=== PATIENT | female | born 1955 | race Caucasian/White ===

== ENCOUNTER 2016-10-14 10:54 | Emergency (ER) | payer OTHER | END 2016-10-14 11:37 | disposition home or self-care (01) | LOC: D.ER 10:54 | DX: T17.298A Other foreign object in pharynx causing other injury, initial encounter (principal); X58.XXXA Exposure to other specified factors, initial encounter; Y93.89 Activity, other specified; Y92.019 Unspecified place in single-family (private) house as the place of occurrence of the external cause; I10 Essential (primary) hypertension; E78.5 Hyperlipidemia, unspecified ==

== ENCOUNTER 2017-01-25 08:10 | Outpatient (CLI) | payer OTHER | END 2017-01-25 10:41 | LOC: D.MAMMO 08:10 | DX: Z12.31 Encounter for screening mammogram for malignant neoplasm of breast (principal) ==

== ENCOUNTER 2017-10-11 20:49 | Emergency (ER) | payer OTHER ==
[2017-10-11 22:21] LABS: BASOPHILS 0.3 % (0-2); HEMATOCRIT 42.6 % (36.0-48.0); HEMOGLOBIN 14.9 g/dL (12-16); IMMATURE GRANULOCYTES 0.4 % (0-5); LYMPHOCYTES 33.4 % (15-50); MCH 29.9 pg (26.0-34.0); MCV 85.5 fL (80.0-100.0); MONOCYTES 7.2 % (2-11); NEUTROPHILS 56.7 % (40-80); PLATELET COUNT 295 10x3/uL (130-400); RBC 4.98 10x6/uL (4.00-5.40); RDW 12.1 % (11.5-14.5); WBC 7.9 10x3/uL (4.8-10.8)
[2017-10-11 22:29] LABS: APPEARANCE CLEAR (CLEAR); COLOR YELLOW (YELLOW); NITRITE NEGATIVE (NEGATIVE); SPECIFIC GRAVITY 1.015 (1.005-1.020)
[2017-10-11 22:30] LABS: BACTERIA FEW /hpf (NONE SEEN); BILIRUBIN NEGATIVE (NEGATIVE); EPITHELIAL CELLS 0-5 /hpf (0-5); GLUCOSE 1000 mg/dL (NEGATIVE); KETONE MODERATE mg/dL (NEGATIVE); PROTEIN NEGATIVE (NEGATIVE); RED CELLS - URINE OCC /hpf (0-5); UROBILINOGEN NORMAL (NORMAL)
[2017-10-11 22:38] LABS: KETONE - SERUM NEGATIVE (NEGATIVE)
[2017-10-11 22:46] LABS: ALBUMIN 3.9 g/dL (3.4-5.0); ALKALINE PHOSPHATASE 163 U/L (46-116); ALT (SGPT) 54 U/L (10-68); CALCIUM 9.4 mg/dL (8.5-10.1); CARBON DIOXIDE 24.8 mmol/L (21.0-32.0); CHLORIDE - SERUM 97 mmol/L (98-107); POTASSIUM - SERUM 3.8 mmol/L (3.5-5.1); PROTEIN - SERUM 7.4 g/dL (6.4-8.2); SODIUM 134 mmol/L (136-145); THYROID STIMULATING HORMONE 2.86 uIU/mL (0.36-3.74); UREA NITROGEN 23 mg/dL (7-18); eGFR NON AFRICAN AMERICAN 59 mL/min (90-120)
[2017-10-11 22:54] LABS: CALC OSMOLALITY 288 mosm/kg (275-300)
[2017-10-11 22:55] LABS: GLUCOSE 411 mg/dL (74-106)
== END 2017-10-12 | disposition home or self-care (01) ==
LOC: D.ER 20:49
PROVIDERS: Physician Assistant Medical
DX: R73.9 Hyperglycemia, unspecified (principal); N39.0 Urinary tract infection, site not specified; E86.0 Dehydration; I10 Essential (primary) hypertension

== ENCOUNTER 2020-05-19 06:31 | Inpatient (IN) | payer OTHER, MEDICARE ==
[~2020-05-19] VITALS: Ht 160 cm; Wt 70.0 kg
[2020-05-19] MEDS ORDERED: METFORMIN HCL500 M1 PO (06:36)
[2020-05-19 06:57] LABS: BASOPHILS 0.5 % (0-2); EOSINOPHILS 2.8 % (0-7); HEMATOCRIT 44.4 % (36.0-48.0); HEMOGLOBIN 14.9 g/dL (12-16); IMMATURE GRANULOCYTES 0.7 % (0-5); LYMPHOCYTES 42.2 % (15-50); MCH 29.8 pg (26.0-34.0); MCHC 33.6 g/dL (31.0-37.0); MCV 88.8 fL (80.0-100.0); MEAN PLATELET VOLUME 9.2 fL (7.4-10.4); MONOCYTES 7.5 % (2-11); NEUTROPHILS 46.3 % (40-80); RDW 12.8 % (11.5-14.5); WBC 9.7 10x3/uL (4.8-10.8)
[2020-05-19 07:06] LABS: CALC OSMOLALITY 276 mosm/kg (275-300); CALCIUM 9.2 mg/dL (8.5-10.1); CARBON DIOXIDE 26.8 mmol/L (21.0-32.0); CHLORIDE - SERUM 100 mmol/L (98-107); CREATININE - SERUM 0.8 mg/dL (0.6-1.3); POTASSIUM - SERUM 3.1 mmol/L (3.5-5.1); SODIUM 137 mmol/L (136-145); UREA NITROGEN 20 mg/dL (7-18); eGFR NON AFRICAN AMERICAN 76 mL/min (90-120)
[2020-05-19 07:07] LABS: GLUCOSE 98 mg/dL (74-106); PLATELET COUNT 377 10x3/uL (130-400)
--- NOTE | 2020-05-19 07:15 | NUR ---
REPORT TO GEOFFREY. DR GARCIA IN TO SEE.
[2020-05-19 07:25] LABS: ALBUMIN 3.8 g/dL (3.4-5.0); ALKALINE PHOSPHATASE 88 U/L (30-120); ALT (SGPT) 78 U/L (10-68); BILIRUBIN - TOTAL 0.64 mg/dL (0.2-1.3); PROTEIN - SERUM 7.7 g/dL (6.4-8.2)
[2020-05-19 07:42] LABS: INR 0.78 (0.85-1.17); PROTIME 10.9 SECONDS (11.6-15.0)
--- NOTE | 2020-05-19 09:08 | MORECARE ---
CASE MANAGEMENT DISCHARGE SUMMARY PATIENT: WILLIAM SERRANO UNIT: [id number] ADM DATE: 05/19/20 AGE: 64 : 53 SEX: F ROOM/BED: D.1204 AUTHOR: YUMIKO TSE PHYSICIAN: REFERRING PHYSICIAN: JARETH BRIZUELA MD DATE OF SERVICE: 05/19/20 Discharge Plan Patient Name: WILLIAM SERRANO Facility: [facility]:[place] : 1955 Planned Disposition: Anticipated Discharge Date: Discharge Date: Expected LOS: Initial Reviewer: [id number] Initial Review Date: 05/19/2020 Generated: 05/19/20 10:08 am Patient Name: WILLIAM SERRANO Page 31755 at 0908 All edits/amendments must be made on the electronic document DICTATION DATE: 05/19/20 09 BUTTON SEWER HAND: MILIND 05/19/20 09 RPT#: [id number] DC DATE: STATUS: ADM IN [facility] [address] [place] [address] END OF REPORT
[2020-05-19 12:18] VITALS: BP 154/75
[2020-05-19 17:54] VITALS: BP 152/82
[2020-05-19 18:10] VITALS: BP 141/73
[2020-05-19 18:21] VITALS: BP 152/82; BMI 27.3
[2020-05-19] MEDS ORDERED: HYDROCHLOROTH12.5 M1 PO (18:22)
[2020-05-19] MEDS ORDERED: ZOCOR40 MG PO (18:22)
[2020-05-19 19:29] VITALS: BP 139/75
[2020-05-19 19:39] VITALS: BP 139/75
--- NOTE | 2020-05-19 20:00 | NUR ---
RESTING IN BED EYES CLOSED AROUSES EASILY, DENIES PAIN OR NEEDS AT THIS TIME, SEE SHIFT ASSESSMENT, CALL LIGHT IN REACH, CAST AND NEHEMIAS WRAP INTACT TO LEFT FOOT AND LOWER LEG, TOES PINK DENIES FEELING TO TOES
[2020-05-20] VITALS: BP 130/70
[2020-05-20 04:00] VITALS: BP 125/64
[2020-05-20 06:48] LABS: BASOPHILS 0.2 % (0-2); EOSINOPHILS 0.2 % (0-7); HEMATOCRIT 37.3 % (36.0-48.0); HEMOGLOBIN 12.2 g/dL (12-16); IMMATURE GRANULOCYTES 0.2 % (0-5); LYMPHOCYTES 15.6 % (15-50); MCH 29.1 pg (26.0-34.0); MCHC 32.7 g/dL (31.0-37.0); MEAN PLATELET VOLUME 9.1 fL (7.4-10.4); MONOCYTES 13.3 % (2-11); NEUTROPHILS 70.5 % (40-80); RBC 4.19 10x6/uL (4.00-5.40); WBC 9.9 10x3/uL (4.8-10.8)
[2020-05-20 06:56] LABS: PLATELET COUNT 296 10x3/uL (130-400)
[2020-05-20 07:05] LABS: ALKALINE PHOSPHATASE 67 U/L (30-120); BILIRUBIN - TOTAL 0.79 mg/dL (0.2-1.3); CALCIUM 8.7 mg/dL (8.5-10.1); CARBON DIOXIDE 29.3 mmol/L (21.0-32.0); CHLORIDE - SERUM 105 mmol/L (98-107); CREATININE - SERUM 0.8 mg/dL (0.6-1.3); GLUCOSE 94 mg/dL (74-106); POTASSIUM - SERUM 3.4 mmol/L (3.5-5.1); PROTEIN - SERUM 6.4 g/dL (6.4-8.2); SODIUM 139 mmol/L (136-145); eGFR NON AFRICAN AMERICAN 76 mL/min (90-120)
[2020-05-20 07:07] LABS: ALT (SGPT) 53 U/L (10-68); CALC OSMOLALITY 277 mosm/kg (275-300); UREA NITROGEN 12 mg/dL (7-18)
--- NOTE | 2020-05-20 07:30 | NUR ---
AWAKE AND ALERT. ORIENTED X3. LUNGS ARE CLEAR BUT DIMINISHED,OCCASSIONALLY PRODUCTIVE COUGH NOTED. SKIN IS INTACT WITHOUT REDNESS EXCEPT INCISION TO LEFT FOOT WHICH HAS A DRY INTACT DRESSING IN PLACE. IV TO LEFT AC IS PATENT WITHOUT REDNESS AT INSERTION SITE. REQUESTED AND GIVEN 10MG OXY PO FOR C/O LEFT ANKLE PAIN LEVEL 7. WILL MONITOR. SISTER AT BEDSIDE. UP TO BR. VOIDED WITHOUT DIFFICULTY.
--- NOTE | 2020-05-20 08:17 | OP ---
PATIENT NAME: WILLIAM SERRANO MEDICAL RECORD: [id number] :53 LOCATION:D. D.1207 ADMISSION DATE:05/19/20 SURGEON: JOSE HALE DO DATE OF OPERATION: 05/19/2020 PROCEDURE PERFORMED: Left ankle open reduction internal fixation. PREOPERATIVE DIAGNOSIS: Displaced subluxed left bimalleolar ankle fracture. POSTOPERATIVE DIAGNOSIS: Displaced subluxed left bimalleolar ankle fracture. INDICATIONS: Ms. Serrano is a 64-year-old female who fell today after walking her dogs and sustained a fracture to her left ankle and a severely displaced and subluxed laterally. She was brought to the ER and x-rays were taken and this seemed to be just subluxed and had a very comminuted fibula fracture in the shaft proximal to the ankle joint and the talus was subluxed out laterally. She also had a shantel of bone off the medial malleolus likely avulsion fracture from the deltoid ligament and she was put in a splint. I informed her that she needed to have her ankle fixed that would not be able to be treated nonop and informed her of the risks including infection, bleeding, damage to nerves or vessels in the area, specifically the superficial peroneal nerve due to the fact we had to make a larger incision to get the plate where it needed to be from the fracture, blood clots, and even and she signed the consent. SURGEON: Jose Hale DO DESCRIPTION OF THE PROCEDURE: The patient was taken to the operative suite after given a block by anesthesia in the preoperative area and taken from the supine position, given general anesthetic and LMA was placed. She was given a gram of Ancef. The left lower extremity was then prepped and draped in sterile fashion. A timeout was performed. Everyone was agreeance with correct side, site, patient, and the procedure. I then exsanguinated the left lower extremity with an Esmarch. Tourniquet was inflated to 350 mmHg, it was up for 58 minutes. I then made an incision over the lateral aspect of the ankle in order to bypass the fracture site. I made a reduction with the 2 larger pieces. She did have a piece of the more posterior that was not able to be fixated but then spanned the fracture with an 8-hole locking plate. I then pinned into place and once it was in adequate position, I locked it distally first and then put 3 screws into the shaft. The last of which was a locking screw. I then reduced the ankle joint as it subluxed laterally some and had medial clear space with a ratkh-gn-hroje clamp and with the ankle dorsiflexed and then put a ZipTight across and held it very well. I then addressed the medial mal and made a curvilinear incision over the medial malleolus, made careful dissection down to the avulsion fracture, put a 2.9 JuggerLoc anchor into the medial malleolus in a xjtedt-ub-wybym type fashion with 4 different sutures, sutured the fracture piece up to the fracture site and tied it into place, it held very well. The ankle was very stable upon examination. After that, the tourniquet was then let down. The sites were irrigated. Jason Fonseca, certified nurse midwife, closed the lateral side that he did this while I was doing the medial side with 2-0 Vicryl in inverted interrupted fashion. ZipLine was placed on the lateral side. The medial side was then closed with 2-0 Vicryl in inverted interrupted fashion. The ZipLine was placed on it. She was then dressed with Adaptic, 4 x 4s, ABD on the heel and over the incisions. A cast padding and a 4 x 30 splint was placed posteriorly and secured in place with 6-inch Gianni wrap. She was awakened and taken to recovery in stable condition. Tourniquet was let down at 58 minutes. OPERATIVE REPORT [id number] WILLIAM SERRANO BLOOD LOSS: 100 mL. COMPLICATIONS: None. TRANSINT:[id number] Voice Confirmation ID: [id number] DOCUMENT ID: [id number] JOSE HALE DO at 0817 CC: [id number] DICTATION DATE: 05/19/20 1641 CREDIT ASSOCIATE: 05/20/20 0216 ADM IN [place] [id number] [place] [id number]
[2020-05-20 09:00] VITALS: BP 139/56
--- NOTE | 2020-05-20 09:00 | NUR ---
ATE ALL OF BREAKFAST SHE WANTED. TOOK AM MEDS WITHOUT DIFFICULTY. DENIES NEEDS.
[2020-05-20 09:59] VITALS: Ht 160 cm; Wt 70.0 kg
--- NOTE | 2020-05-20 11:21 | NUR ---
REQUESTED AND GIVEN 10MG OXY PO FOR C/O LEFT ANKEL LEVEL 8. WILL MONITOR.
--- NOTE | 2020-05-20 14:30 | NUR ---
CRYING WITH PAIN TO LEFT ANKLE. ICE AND TYLENOL DIDN'T HELP. REFUSED OFFER OF DILAUDID IV. WILL MONITOR.
--- NOTE | 2020-05-20 15:00 | NUR ---
REQUESTED AND GIVEN 10MG OXY WITH 50MG VISTARIL PO FOR C/O LEFT ANKLE PAIN LEVEL 9. WILL MONITOR.
--- NOTE | 2020-05-20 16:12 | NUR ---
RESTING QUIETLY WITH EYES CLOSED. REPORTS PAIN IMPROVED BUT STILL THERE. WILL CONTINUE TO MONITOR.
--- NOTE | 2020-05-20 18:29 | NUR ---
ATE MOST OF SUPPER. REPORTS PAIN GREATLY IMPROVED. UP TO BSC WITH ONE PERSON ASSIST. VOIDED WITHOUT DIFFICULTY. CLEAR YELLOW SPECIMEN SENT TO LAB PER ORDERS. NO CHANGES AT THIS TIME.
[2020-05-20 18:36] LABS: BILIRUBIN NEGATIVE (NEGATIVE); KETONE NEGATIVE (NEGATIVE); NITRITE NEGATIVE (NEGATIVE); UROBILINOGEN NORMAL mg/dL (< 2)
[2020-05-20 20:00] VITALS: BP 131/61
--- NOTE | 2020-05-20 20:00 | NUR ---
ALERT RESTING IN BED REPORTS GOOD PAIN RELIEF WITH PAIN MEDS, SEE SHIFT ACCESSMENT,CALLLIGHT IN REACH
[2020-05-21 05:00] VITALS: BP 132/72
--- NOTE | 2020-05-21 06:00 | NUR ---
PT HAS INSENTIVE SPIROMETER AND ENCOURACED TO USE 10 TIMES/HR WHILE AWAKE, STATES HAS BEEN USING
--- NOTE | 2020-05-21 07:30 | NUR ---
AWAKE AND ALERT. ORIENTED X3. NO C/O AT THIS TIME. STATED LEFT ANKLE IS VERY SORE AND PLEASE DON'T TOUCH IT. NO INCREASED SWELLING NOTED. MOVES DIGITS FREELY. WILL MONITOR.
[2020-05-21 07:41] LABS: BASOPHILS 0.1 % (0-2); EOSINOPHILS 1.1 % (0-7); HEMATOCRIT 34.7 % (36.0-48.0); HEMOGLOBIN 11.4 g/dL (12-16); IMMATURE GRANULOCYTES 0.2 % (0-5); LYMPHOCYTES 21.3 % (15-50); MCH 29.4 pg (26.0-34.0); MCHC 32.9 g/dL (31.0-37.0); MCV 89.4 fL (80.0-100.0); MONOCYTES 13.6 % (2-11); NEUTROPHILS 63.7 % (40-80); PLATELET COUNT 275 10x3/uL (130-400); RBC 3.88 10x6/uL (4.00-5.40); RDW 13.1 % (11.5-14.5); WBC 8.5 10x3/uL (4.8-10.8)
[2020-05-21 08:04] VITALS: BP 143/58
[2020-05-21 08:06] LABS: ALBUMIN 2.9 g/dL (3.4-5.0); ALKALINE PHOSPHATASE 64 U/L (30-120); BILIRUBIN - TOTAL 1.03 mg/dL (0.2-1.3); CALC OSMOLALITY 277 mosm/kg (275-300); CALCIUM 8.4 mg/dL (8.5-10.1); CARBON DIOXIDE 27.5 mmol/L (21.0-32.0); CHLORIDE - SERUM 105 mmol/L (98-107); CREATININE - SERUM 0.7 mg/dL (0.6-1.3); GLUCOSE 92 mg/dL (74-106); PROTEIN - SERUM 5.9 g/dL (6.4-8.2); SODIUM 139 mmol/L (136-145); UREA NITROGEN 13 mg/dL (7-18); eGFR NON AFRICAN AMERICAN 89 mL/min (90-120)
[2020-05-21 08:07] LABS: ALT (SGPT) 39 U/L (10-68)
--- NOTE | 2020-05-21 09:30 | NUR ---
AMBULATED 30 FEET IN HALLWAY WITH PT USING CRUTCHES. DID WELL. DENIES INCREASED PAIN WITH ACTIVITY. ATE ALL OF BREAKFAST AND TOOK AM MEDS WITHOUT DIFFICULTY.
--- NOTE | 2020-05-21 10:15 | NUR ---
REQUESTED AND GIVEN 10MG OXY WITH 50MG VISTARIL PO FOR C/O LEFT ANKLE PAIN LEVEL 8. UP TO BSC WITH SBA. VOIDED CLEAR YELLOW URINE WITHOUT DIFFICULTY. SKIN CARE PER SELF.
--- NOTE | 2020-05-21 12:26 | NUR ---
REFUSED ACUCHECK AT THIS TIME. CRYING WITH PAIN. ENCOURAGED TO TAKE 1MG DILAUDID SLOW IVP FOR PAIN LEVEL 9, SHE AGREED TO SAME. WILL MONITOR.
--- NOTE | 2020-05-21 13:00 | NUR ---
ATE MOST OF LUNCH. REPORTS PAIN IMPROVED AT THIS TIME. DENIES NEEDS.
[2020-05-21 16:04] VITALS: BP 121/76
--- NOTE | 2020-05-21 17:00 | NUR ---
REFUSED ACUCHECK AT THIS TIME. I ONLY CHECK IT ONCE A DAY AT HOME. ATE MOST OF SUPPER PER SELF. DENIES NEEDS. NO CHANGES NOTED.
[2020-05-21 18:17] VITALS: BP 135/75
[2020-05-21 20:00] VITALS: BP 142/69
--- NOTE | 2020-05-21 21:00 | NUR ---
REFUSED ACCUCHECK, OXYCODONE GIVEN ORDERED, CALL LIGHT IN REACH
--- NOTE | 2020-05-21 23:18 | NUR ---
ALERT RESTING IN BED, REPORTS SOME PAIN TO ANKLE, SEE SHIFT ASSESSMENT, CALL LIGHT IN REACH
[2020-05-22 05:30] VITALS: BP 151/64
[2020-05-22 06:46] LABS: BASOPHILS 0.2 % (0-2); HEMATOCRIT 36.1 % (36.0-48.0); HEMOGLOBIN 11.9 g/dL (12-16); IMMATURE GRANULOCYTES 0.2 % (0-5); LYMPHOCYTES 21.5 % (15-50); MCH 29.5 pg (26.0-34.0); MCV 89.6 fL (80.0-100.0); MEAN PLATELET VOLUME 8.9 fL (7.4-10.4); MONOCYTES 11.2 % (2-11); NEUTROPHILS 63.9 % (40-80); PLATELET COUNT 286 10x3/uL (130-400); RBC 4.03 10x6/uL (4.00-5.40); RDW 12.9 % (11.5-14.5); WBC 8.2 10x3/uL (4.8-10.8)
[2020-05-22 07:22] LABS: ALBUMIN 2.8 g/dL (3.4-5.0); ALKALINE PHOSPHATASE 68 U/L (30-120); ALT (SGPT) 41 U/L (10-68); BILIRUBIN - TOTAL 1.02 mg/dL (0.2-1.3); CALC OSMOLALITY 281 mosm/kg (275-300); CALCIUM 8.9 mg/dL (8.5-10.1); CARBON DIOXIDE 30.2 mmol/L (21.0-32.0); CHLORIDE - SERUM 105 mmol/L (98-107); CREATININE - SERUM 0.7 mg/dL (0.6-1.3); GLUCOSE 98 mg/dL (74-106); POTASSIUM - SERUM 3.9 mmol/L (3.5-5.1); PROTEIN - SERUM 6.5 g/dL (6.4-8.2); SODIUM 141 mmol/L (136-145); UREA NITROGEN 16 mg/dL (7-18); eGFR NON AFRICAN AMERICAN 89 mL/min (90-120)
[2020-05-22 07:37] VITALS: BP 155/87
--- NOTE | 2020-05-22 08:39 | NUR ---
AMBULATED TO [facility] WITH WALKER. HOPPING WELL. VOIDED BUT NO STOOL. AMBULATED TO CHAIR AT BEDSIDE. FEET ELEVATED. CALL LIGHT IN REACH. HARD SPLINT AND NEHEMIAS WRAP NOTED TO LEFT LOWER LEG-TOES PINK AND WARM. ABLE TO MOVE TOES. WILL CONTINUE TO MONITOR
[2020-05-22] MEDS ORDERED: ELIQUIS2.5 MG PO (09:25)
[2020-05-22] MEDS ORDERED: oxyCODONE IR PO (09:25)
[2020-05-22] MEDS ORDERED: VISTARIL50 MG PO (09:26)
[2020-05-22 11:19] VITALS: BP 157/79
--- NOTE | 2020-05-22 12:07 | MORECARE ---
CASE MANAGEMENT DISCHARGE SUMMARY PATIENT: WILLIAM SERRANO UNIT: [id number] ADM DATE: 05/19/20 AGE: 64 : 53 SEX: F ROOM/BED: D.1207 AUTHOR: YUMIKO TSE PHYSICIAN: REFERRING PHYSICIAN: JARETH BRIZUELA MD DATE OF SERVICE: 05/22/20 Discharge Plan Patient Name: WILLIAM SERRANO Facility: [facility]:[place] : 1955 Planned Disposition: Home Anticipated Discharge Date: 05/22/20 Discharge Date: Expected LOS: 3 Initial Reviewer: [email or web address] Initial Review Date: 05/19/2020 Generated: 05/22/20 1:07 pm Last DP export: 05/19/20 8:08 a Patient Name: WILLIAM SERRANO Page [phone] at 1207 All edits/amendments must be made on the electronic document DICTATION DATE: 05/22/20 1207 MACHINE I TRIMMER: DM 05/22/20 1207 RPT#: [id number] DC DATE: STATUS: ADM IN [facility] [address] [place] [address] END OF REPORT
--- NOTE | 2020-05-22 12:17 | MORECARE ---
CASE MANAGEMENT DISCHARGE SUMMARY PATIENT: WILLIAM SERRANO UNIT: [id number] ADM DATE: 05/19/20 AGE: 64 : 53 SEX: F ROOM/BED: D.1207 AUTHOR: YUMIKO TSE PHYSICIAN: REFERRING PHYSICIAN: JARETH BRIZUELA MD DATE OF SERVICE: 05/22/20 Discharge Plan Patient Name: WILLIAM SERRANO Facility: [facility]:[place] : 1955 Planned Disposition: Home Anticipated Discharge Date: 05/22/20 Discharge Date: Expected LOS: 3 Initial Reviewer: [email or web address] Initial Review Date: 05/19/2020 Generated: 05/22/20 1:16 pm DCPIA - Discharge Planning Initial Assessment Updated by [email or web address]: Mona Mendoza on 05/22/20 12:11 pm * Is the patient Alert and Oriented? Yes * How many steps to enter\exit or inside your home? 10/05 * PCP Dr. Gonzalez * Pharmacy [facility] [place] * Preadmission Environment Home Alone * ADLs Partial Dependent * Partial ADLs (Assistance needed) Ambulation Bathing Dressing Transfers * Equipment Bedside Commode Walker Wheelchair * Other Equipment Rolling Walker, Wheel Chair, Bedside Commode * List name and contact numbers for known caregivers / representatives who currently or will assist patient after discharge: Steven Hawkins ([phone]) [address] [place] [id number] * Verbal permission to speak to the caregivers and representatives has been obtained from the patient. Yes * Community resources currently utilized None * Please name any agencies selected above. n/a * Additional services required to return to the preadmission environment? Yes * Can the patient safely return to the preadmission environment? No * Has this patient been hospitalized within the prior 30 days at any hospital? No Last DP export: 05/22/20 11:07 a Patient Name: WILLIAM SERRANO Page 33719 at 1217 All edits/amendments must be made on the electronic document DICTATION DATE: 05/22/20 1216 LEAD HOUSEKEEPER: MILIND 05/22/20 1216 RPT#: [id number] DC DATE: STATUS: ADM IN [facility] [address] [place] [address] END OF REPORT
--- NOTE | 2020-05-22 12:27 | MORECARE ---
CASE MANAGEMENT DISCHARGE SUMMARY PATIENT: WILLIAM SERRANO UNIT: [id number] ADM DATE: 05/19/20 AGE: 64 : 53 SEX: F ROOM/BED: D.1207 AUTHOR: DEDRICK,DOC PHYSICIAN: REFERRING PHYSICIAN: JARETH BRIZUELA MD DATE OF SERVICE: 05/22/20 Discharge Plan Patient Name: WILLIAM SERRANO Facility: [facility]:[place] : 1955 Planned Disposition: Home Anticipated Discharge Date: 05/22/20 Discharge Date: Expected LOS: 3 Initial Reviewer: [email or web address] Initial Review Date: 05/19/2020 Generated: 05/22/20 1:26 pm Comments DCP- Discharge Planning Updated by [email or web address]: Mona Mendoza on 05/22/20 11:[address] Patient Name: WILLIAM SERRANO Admission Status: ER Accout number: [id number] Admission Date: 05-19-2020 : 1955 Admission Diagnosis:DISPLACED TRIMALLEOLAR FRACTURE OF LEFT LOWER LEG, INIT Attending: JARETH BRIZUELA Current LOS: 3 Anticipated DC Date: 05-22-2020 Planned Disposition: Home Primary Insurance: AET[employer] PPO Discharge Planning Comments: CM met with patient to complete to discuss discharge planning / needs. CM verified patient's address, phone number, and emergency contact phone numbers. She stated that she will live temporarily with her son, Steven Mcdonald ([phone]) at [address] [place] [address] [place] [address]. Prior to this hospitalization, patient lived at home alone and was independent with ADL's. At discharge patient plans to live with Steven and feels this is a safe discharge. Patient indicated that her home was not safe, stating that she has 2 stairs to enter the home and within the home, which is split-level, there are 5 stairs to navigate to one level then 10 stairs to navigate at the next level. Patient states that Steven's home only has 2 stairs to enter and it is safe to navigate. CM discussed availability of home health, rehab services, and medical equipment. Patient declined HH at this time as well as SNF and IPR services. Patient indicated that she does need a wheelchair, BSC. Stated that "...any DME in network" signed CODY. Denies any other DC needs at this time. Transportation provider at discharge will be with her son Steven. CM will continue to follow and will assist as needed with dc plans/needs. DCPIA - Discharge Planning Initial Assessment Updated by [email or web address]: Mona Mendoza on 05/22/20 12:25 pm * Is the patient Alert and Oriented? Yes * How many steps to enter\\exit or inside your home? 10/05 * PCP Dr. Gonzalez * Pharmacy [facility] [place] * Preadmission Environment Home Alone * ADLs Independent * Equipment Rolling Walker * List name and contact numbers for known caregivers / representatives who currently or will assist patient after discharge: Steven Hawkins, son ([phone]) [address] [place] [address] * Verbal permission to speak to the caregivers and representatives has been obtained from the patient. Yes * Community resources currently utilized None * Please name any agencies selected above. n/a * Additional services required to return to the preadmission environment? No * Can the patient safely return to the preadmission environment? No * Has this patient been hospitalized within the prior 30 days at any hospital? No Last DP export: 05/22/20 11:17 a Patient Name: WILLIMA SERRANO Page 92777 at 1227 All edits/amendments must be made on the electronic document DICTATION DATE: 05/22/206 HRIS MANAGER: MILIND 05/22/20 1226 RPT#: [id number] DC DATE: STATUS: ADM IN [facility] [address] [place] [address] END OF REPORT
--- NOTE | 2020-05-22 12:50 | MORECARE ---
CASE MANAGEMENT DISCHARGE SUMMARY PATIENT: WILLIAM SERRANO UNIT: [id number] ADM DATE: 05/19/20 AGE: 64 : 53 SEX: F ROOM/BED: D.1207 AUTHOR: DEDRICK,DOC PHYSICIAN: REFERRING PHYSICIAN: JARETH BRIZUELA MD DATE OF SERVICE: 05/22/20 Discharge Plan Patient Name: WILLIAM SERRANO Facility: [facility]:[place] : 1955 Planned Disposition: Home Anticipated Discharge Date: 05/22/20 Discharge Date: Expected LOS: 3 Initial Reviewer: [email or web address] Initial Review Date: 05/19/2020 Generated: 05/22/20 1:49 pm Comments DCP- Discharge Planning Updated by [email or web address]: Mona Mendoza on 05/22/20 11:[address] Patient Name: WILLIAM SERRANO Admission Status: ER Accout number: [id number] Admission Date: 05-19-2020 : 1955 Admission Diagnosis:DISPLACED TRIMALLEOLAR FRACTURE OF LEFT LOWER LEG, INIT Attending: JARETH BRIZUELA Current LOS: 3 Anticipated DC Date: 05-22-2020 Planned Disposition: Home Primary Insurance: AET[employer] PPO Discharge Planning Comments: CM met with patient to complete to discuss discharge planning / needs. CM verified patient's address, phone number, and emergency contact phone numbers. She stated that she will live temporarily with her son, Steven Mcdonald ([phone]) at [address] [place] [address] [place] [address]. Prior to this hospitalization, patient lived at home alone and was independent with ADL's. At discharge patient plans to live with Steven and feels this is a safe discharge. Patient indicated that her home was not safe, stating that she has 2 stairs to enter the home and within the home, which is split-level, there are 5 stairs to navigate to one level then 10 stairs to navigate at the next level. Patient states that Steven's home only has 2 stairs to enter and it is safe to navigate. CM discussed availability of home health, rehab services, and medical equipment. Patient declined HH at this time as well as SNF and IPR services. Patient indicated that she does need a wheelchair, BSC. Stated that "...any DME in network" signed CODY. Denies any other DC needs at this time. Transportation provider at discharge will be with her son Steven. CM will continue to follow and will assist as needed with dc plans/needs. DCPIA - Discharge Planning Initial Assessment Updated by [id number]: Mona Mendoza on 05/22/20 12:25 pm * Is the patient Alert and Oriented? Yes * How many steps to enter\\exit or inside your home? 10/05 * PCP Dr. Gonzalez * Pharmacy [facility] [place] * Preadmission Environment Home Alone * ADLs Independent * Equipment Rolling Walker * List name and contact numbers for known caregivers / representatives who currently or will assist patient after discharge: Steven Hawkins, son ([phone]) [address] [facility], [place] [address] * Verbal permission to speak to the caregivers and representatives has been obtained from the patient. Yes * Community resources currently utilized None * Please name any agencies selected above. n/a * Additional services required to return to the preadmission environment? No * Can the patient safely return to the preadmission environment? No * Has this patient been hospitalized within the prior 30 days at any hospital? No External Providers External Provider: [facility] Next Contact Date: Service Request Date: Service Type: Resolution: Reviewer: Comments: Last DP export: 05/22/20 11:27 a Patient Name: WILLIAM SERRANO Page [phone] at 1250 All edits/amendments must be made on the electronic document DICTATION DATE: 05/22/20 1249 MEDICATION AIDE: MILIND 05/22/20 1249 RPT#: [id number] DC DATE: STATUS: ADM IN [facility] [address] [facility] [place] [address] END OF REPORT
--- NOTE | 2020-05-22 16:06 | MORECARE ---
CASE MANAGEMENT DISCHARGE SUMMARY PATIENT: WILLIAM SERRANO UNIT: [id number] ADM DATE: 05/19/20 AGE: 64 : 53 SEX: F ROOM/BED: D.1207 AUTHOR: YUMIKO TSE PHYSICIAN: REFERRING PHYSICIAN: JARETH BRIZUELA MD DATE OF SERVICE: 05/22/20 Discharge Plan Patient Name: WILLIAM SERRANO Facility: [facility]:[place] : 1955 Planned Disposition: Home Anticipated Discharge Date: 05/22/20 Discharge Date: Expected LOS: 3 Initial Reviewer: [email or web address] Initial Review Date: 05/19/2020 Generated: 05/22/20 5:06 pm Comments DCP- Discharge Planning Updated by [email or web address]: Nazario Rios on 05/22/20 2:[address] late entry for 1254. CM called [facility] regarding order for BSC and Wheelchair. Spoke with Deandra, faxed orders as requested. ~1330 rcvd call from [facility] stating that they are in network and would deliver equipment between 1500 and 1530. Informed patient. Patient verbalized understanding and requested a shower bench. Informed [facility] DME and faxed order. Patient decided that Shower bench was not needed. Informed Deandra at [facility]. Deandra acknowledged cancellation. Patient verbalized satisfaction and denied any other needs. ~1420 DC IMM delivered, explained, signed by the patient, and placed in chart. Signed form also left with the patient. CM will continue to follow and will assist as needed with dc plans/needs. DCP- Discharge Planning Updated by [id number]: Mona Mendoza on 05/22/20 11:[address] Patient Name: WILLIAM SERRANO Admission Status: ER Accout number: [id number] Admission Date: 05-19-2020 : 1955 Admission Diagnosis:DISPLACED TRIMALLEOLAR FRACTURE OF LEFT LOWER LEG, INIT Attending: JARETH BRIZUELA Current LOS: 3 Anticipated DC Date: 05-22-2020 Planned Disposition: Home Primary Insurance: AET[employer] PPO Discharge Planning Comments: CM met with patient to complete to discuss discharge planning / needs. CM verified patient's address, phone number, and emergency contact phone numbers. She stated that she will live temporarily with her son, Steven Mcdonald ([phone]) at [address] [place] [place] [address]. Prior to this hospitalization, patient lived at home alone and was independent with ADL's. At discharge patient plans to live with Steven and feels this is a safe discharge. Patient indicated that her home was not safe, stating that she has 2 stairs to enter the home and within the home, which is split-level, there are 5 stairs to navigate to one level then 10 stairs to navigate at the next level. Patient states that Steven's home only has 2 stairs to enter and it is safe to navigate. CM discussed availability of home health, rehab services, and medical equipment. Patient declined HH at this time as well as SNF and IPR services. Patient indicated that she does need a wheelchair, BSC. Stated that "...any DME in network" signed CODY. Denies any other DC needs at this time. Transportation provider at discharge will be with her son Steven. CM will continue to follow and will assist as needed with dc plans/needs. DCPIA - Discharge Planning Initial Assessment Updated by [email or web address]: Mona Mendoza on 05/22/20 12:25 pm * Is the patient Alert and Oriented? Yes * How many steps to enter\\exit or inside your home? 10/05 * PCP Dr. Gonzalez * Pharmacy [facility] * Preadmission Environment Home Alone * ADLs Independent * Equipment Rolling Walker * List name and contact numbers for known caregivers / representatives who currently or will assist patient after discharge: Steven Hawkins, elzbieta ([phone]) [address] [place] [address] * Verbal permission to speak to the caregivers and representatives has been obtained from the patient. Yes * Community resources currently utilized None * Please name any agencies selected above. n/a * Additional services required to return to the preadmission environment? No * Can the patient safely return to the preadmission environment? No * Has this patient been hospitalized within the prior 30 days at any hospital? No Coverage Notice Reviewer: [email or web address] Lorin Rios Notice Issued Date-Time: 05/22/2020 11:40 Notice Type: Patient Choice Letter Notice Delivered To: Patient Relationship to Patient: Self Inspector Toys Name: Delivery Method: HAND - Hand Delivered Anisa Days: Prior Verbal Notification: Recipient Understood Notice: Yes Recipient Signature: Yes Med Rec Note Co-signed by Attending: Coverage Notice Comment: CORDELL SUTTON Reviewer: [email or web address] Lorin Rios Notice Issued Date-Time: 05/22/2020 14:23 Notice Type: IM Discharge Notice Notice Delivered To: Patient Relationship to Patient: Self Inspector Toys Name: Delivery Method: HAND - Hand Delivered Anisa Days: Prior Verbal Notification: Recipient Understood Notice: Yes Recipient Signature: Yes Med Rec Note Co-signed by Attending: Coverage Notice Comment: DC IMM delivered, explained, signed by the patient, and placed in chart. Signed form also left with the patient. Last DP export: 05/22/20 11:50 a Patient Name: WILLIAM SERRANO Page 62042 at 1606 All edits/amendments must be made on the electronic document DICTATION DATE: 05/22/201605 REGISTERED VASCULAR TECHNOLOGIST (RVT): MILIND 05/22/20 160 RPT#: [id number] DC DATE: STATUS: ADM IN [facility] [address] [place] [address] END OF REPORT
--- NOTE | 2020-05-22 17:43 | NUR ---
DISCHARGE INSTRUCTIONS REVIEWED WITH PATIENT. IV REMOVED. QUESTIONS ANSWERED. BELONGINGS PACKED AND WC, BSC, AND WALKER SENT WITH PT. TO CAR WITH BELONGINGS
--- NOTE | 2020-05-25 09:26 | MORECARE ---
CASE MANAGEMENT DISCHARGE SUMMARY PATIENT: WILLIAM SERRANO UNIT: [id number] ADM DATE: 05/19/20 AGE: 64 : 53 SEX: F ROOM/BED: D.1207 AUTHOR: YUMIKO TSE PHYSICIAN: REFERRING PHYSICIAN: JARETH BRIZUELA MD DATE OF SERVICE: 05/25/20 Discharge Plan Patient Name: WILLIAM SERRANO Facility: [facility]:[place] : 1955 Planned Disposition: Home Anticipated Discharge Date: 05/22/20 Discharge Date: 05/22/2020 Expected LOS: 3 Initial Reviewer: [email or web address] Initial Review Date: 05/19/2020 Generated: 05/25/20 10:25 am Comments DCP- Discharge Planning Updated by [email or web address]: Nazario Rios on 05/22/20 2:[address] late entry for 1254. CM called [facility] regarding order for BSC and Wheelchair. Spoke with Deandra, faxed orders as requested. ~1330 rcvd call from [facility] stating that they are in network and would deliver equipment between 1500 and 1530. Informed patient. Patient verbalized understanding and requested a shower bench. Informed [facility] DME and faxed order. Patient decided that Shower bench was not needed. Informed Deandra at [facility]. Deandra acknowledged cancellation. Patient verbalized satisfaction and denied any other needs. ~1420 DC IMM delivered, explained, signed by the patient, and placed in chart. Signed form also left with the patient. CM will continue to follow and will assist as needed with dc plans/needs. DCP- Discharge Planning Updated by [email or web address]: Mona Mendoza on 05/22/20 11:[address] Patient Name: WILLIAM SERRANO Admission Status: ER Accout number: [id number] Admission Date: 05-19-2020 : 1955 Admission Diagnosis:DISPLACED TRIMALLEOLAR FRACTURE OF LEFT LOWER LEG, INIT Attending: JARETH BRIZUELA Current LOS: 3 Anticipated DC Date: 05-22-2020 Planned Disposition: Home Primary Insurance: [employer] PPO Discharge Planning Comments: CM met with patient to complete to discuss discharge planning / needs. CM verified patient's address, phone number, and emergency contact phone numbers. She stated that she will live temporarily with her son, Steven Mcdonald ([phone]) at [address] [place] [address]. Prior to this hospitalization, patient lived at home alone and was independent with ADL's. At discharge patient plans to live with Steven and feels this is a safe discharge. Patient indicated that her home was not safe, stating that she has 2 stairs to enter the home and within the home, which is split-level, there are 5 stairs to navigate to one level then 10 stairs to navigate at the next level. Patient states that Steven's home only has 2 stairs to enter and it is safe to navigate. CM discussed availability of home health, rehab services, and medical equipment. Patient declined HH at this time as well as SNF and IPR services. Patient indicated that she does need a wheelchair, BSC. Stated that "...any DME in network" signed CODY. Denies any other DC needs at this time. Transportation provider at discharge will be with her son Steven. CM will continue to follow and will assist as needed with dc plans/needs. DCPIA - Discharge Planning Initial Assessment Updated by [email or web address]: Mona Mendoza on 05/22/20 12:25 pm * Is the patient Alert and Oriented? Yes * How many steps to enter\\exit or inside your home? 10/05 * PCP Dr. Gonzalez * Pharmacy [facility] [place] * Preadmission Environment Home Alone * ADLs Independent * Equipment Rolling Walker * List name and contact numbers for known caregivers / representatives who currently or will assist patient after discharge: Steven Hawkins, elzbieta ([phone]) [address] [place] [address] * Verbal permission to speak to the caregivers and representatives has been obtained from the patient. Yes * Community resources currently utilized None * Please name any agencies selected above. n/a * Additional services required to return to the preadmission environment? No * Can the patient safely return to the preadmission environment? No * Has this patient been hospitalized within the prior 30 days at any hospital? No Coverage Notice Reviewer: [email or web address] Lorin Rios Notice Issued Date-Time: 05/22/2020 11:40 Notice Type: Patient Choice Letter Notice Delivered To: Patient Relationship to Patient: Self Manager Hris Name: Delivery Method: HAND - Hand Delivered Anisa Days: Prior Verbal Notification: Recipient Understood Notice: Yes Recipient Signature: Yes Med Rec Note Co-signed by Attending: Coverage Notice Comment: CORDELL SUTTON Reviewer: [email or web address] - Nazario Rios Notice Issued Date-Time: 05/22/2020 14:23 Notice Type: IM Discharge Notice Notice Delivered To: Patient Relationship to Patient: Self Manager Hris Name: Delivery Method: HAND - Hand Delivered Anisa Days: Prior Verbal Notification: Recipient Understood Notice: Yes Recipient Signature: Yes Med Rec Note Co-signed by Attending: Coverage Notice Comment: DC IMM delivered, explained, signed by the patient, and placed in chart. Signed form also left with the patient. Last DP export: 05/22/20 3:06 p Patient Name: WILLIAM SERRANO Page [id number] at 0926 All edits/amendments must be made on the electronic document DICTATION DATE: 05/25/20924 BOBBIN DISKER: MILIND 05/25/20924 RPT#: [id number] DC DATE:05/22/20 STATUS: DIS IN [facility] [address] [place] [address] END OF REPORT
== END 2020-05-22 17:45 | disposition home or self-care (01) | DRG 494 ==
LOC: D.ER 06:31 → D.M3 08:00 → D.EDHOLD 08:00 → D.M3 08:11
PROVIDERS: Family Medicine; Family Medicine Adult Medicine; Orthopaedic Surgery; ADMIT Family Medicine; ATTEND Family Medicine
PROC: 0QSK04Z Reposition Left Fibula with Internal Fixation Device, Open Approach (ICD-10-PCS; 2020-05-19)
PROC: 0QSH04Z Reposition Left Tibia with Internal Fixation Device, Open Approach (ICD-10-PCS; principal; 2020-05-19 15:15)
DX: S82.852A Displaced trimalleolar fracture of left lower leg, initial encounter for closed fracture (principal); W10.9XXA Fall (on) (from) unspecified stairs and steps, initial encounter; E11.65 Type 2 diabetes mellitus with hyperglycemia; E78.5 Hyperlipidemia, unspecified; I10 Essential (primary) hypertension